=== PATIENT | male | born 1955 | race Caucasian/White ===

== ENCOUNTER → 2019-12-21 | Outpatient (CLI) | payer OTHER ==
[~2019-12-21] MED LIST: AMIO200T42 PO; APIX5TAB PO; ASPI-496 PO; CALC200T24 PO; ENAL10TA PO; LEVO150T5 PO; METO-95 PO; METO25TA35 PO; NITR100C56 PO; OMNIPAQUE 350 MG/ML, 100ML BOTTLE ONE; OPIU1SUP PR; OXYC5TAB3 PO; PRAV10TA2 PO; TRAM50TA2 PO
== END | disposition home or self-care (01) ==
LOC: CFH 09:09
PROVIDERS: ATTEND Surgery
DX: K57.30 Diverticulosis of large intestine without perforation or abscess without bleeding (principal); K56.609 Unspecified intestinal obstruction, unspecified as to partial versus complete obstruction; K40.90 Unilateral inguinal hernia, without obstruction or gangrene, not specified as recurrent
CPT/HCPCS: 74177; Q9967

== ENCOUNTER → 2020-04-08 | Outpatient (CLI) | payer OTHER ==
[~2020-04-08] MED LIST changes: +Enalapril PO; +METO25TA4 PO; +MULT-658 PO; -OMNIPAQUE 350 MG/ML, 100ML BOTTLE ONE
[2020-04-08 10:04] LABS: BASOPHILS # (AUTO) 0.03 x10^3/uL (0-0.1); BASOPHILS % (AUTO) 1 % (0-1); EOSINOPHILS % (AUTO) 4 % (1-7); LYMPHOCYTES # (AUTO) 1.65 x10^3/uL (1-3.4); LYMPHOCYTES % (AUTO) 29 % (22-44); MD NO; MEAN CORPUSCULAR HEMOGLOBIN 32.5 pg (27.5-34.5); MEAN CORPUSCULAR HGB CONC 33.9 g/dL (33.2-36.2); MEAN CORPUSCULAR VOLUME 96.1 fL (81-97); MEAN PLATELET VOLUME 9.7 fL (7.4-10.4); MONOCYTES # (AUTO) 0.54 x10^3/uL (0.2-0.8); MONOCYTES % (AUTO) 9 % (2-9); NEUTROPHILS # (AUTO) 3.34 x10^3/uL (1.8-6.8); NEUTROPHILS % (AUTO) 58 % (42-75); PLATELET COUNT 241 x10^3/uL (130-400); RED BLOOD COUNT 4.75 x10^6/uL (4.38-5.82); RED CELL DISTRIBUTION WIDTH 13.1 % (9.4-14.8)
[2020-04-08 10:15] LABS: ALBUMIN 3.8 g/dL (3.4-5.0); ANION GAP 6 mmol/L (5-15); CHLORIDE 110 mmol/L (98-107)
[2020-04-08 10:20] LABS: ALANINE AMINOTRANSFERASE 28 U/L (12-78); ALKALINE PHOSPHATASE 57 U/L (45-117); BILIRUBIN,TOTAL 0.8 mg/dL (0.2-1.0); CREATININE 1.04 mg/dL (0.7-1.3)
== END | disposition home or self-care (01) ==
LOC: STAR 08:37
PROVIDERS: ATTEND Thoracic Surgery (Cardiothoracic Vascular Surgery)
DX: Z01.818 Encounter for other preprocedural examination (principal); M47.814 Spondylosis without myelopathy or radiculopathy, thoracic region; R94.31 Abnormal electrocardiogram [ECG] [EKG]
CPT/HCPCS: 36415; 71046; 80053; 85025; 93005

== ENCOUNTER → 2020-12-13 | Outpatient (CLI) | payer OTHER ==
[~2020-12-13] MED LIST changes: -ENAL10TA PO; +ENAL10TA9 PO; +OMNIPAQUE 350 MG/ML, 100ML BOTTLE ONE; +OXYC5CAP2 PO; -OXYC5TAB3 PO; +OXYC5TAB98 PO
== END | disposition home or self-care (01) ==
LOC: CFH 11:56
PROVIDERS: ATTEND Thoracic Surgery (Cardiothoracic Vascular Surgery)
DX: K76.0 Fatty (change of) liver, not elsewhere classified (principal); K57.30 Diverticulosis of large intestine without perforation or abscess without bleeding; K43.2 Incisional hernia without obstruction or gangrene; K43.9 Ventral hernia without obstruction or gangrene
CPT/HCPCS: 74177; Q9967

== ENCOUNTER → 2021-02-02 | Outpatient (CLI) | payer MEDICARE, OTHER ==
[~2021-02-02] MED LIST changes: +ATOR20TA37 PO; -OMNIPAQUE 350 MG/ML, 100ML BOTTLE ONE; +RIVA20TA PO
[2021-02-02 11:56] LABS: ALANINE AMINOTRANSFERASE 32 U/L (12-78); ALBUMIN 3.8 g/dL (3.4-5.0); ANION GAP 5 mmol/L (5-15); CHLORIDE 110 mmol/L (98-107); CREATININE 1.07 mg/dL (0.7-1.3)
[2021-02-02 11:59] LABS: ALKALINE PHOSPHATASE 72 U/L (45-117); BILIRUBIN,TOTAL 0.7 mg/dL (0.2-1.0); TOTAL PROTEIN 6.9 g/dL (6.4-8.2)
== END | disposition home or self-care (01) ==
LOC: STAR 10:45
PROVIDERS: ATTEND Thoracic Surgery (Cardiothoracic Vascular Surgery)
DX: Z01.812 Encounter for preprocedural laboratory examination (principal); Z20.822 Contact with and (suspected) exposure to COVID-19; I48.91 Unspecified atrial fibrillation; R94.31 Abnormal electrocardiogram [ECG] [EKG]
CPT/HCPCS: 36415; 80053; 93005; U0003; U0005

== ENCOUNTER 2021-02-08 06:15 | Day surgery (SDC) | payer MEDICARE, OTHER ==
[~2021-02-08] VITALS: Ht 193 cm; Wt 124.0 kg
[2021-02-08 06:38] VITALS: BP 137/87
[2021-02-08] MEDS ORDERED: CHLORHEXIDINE 15 ML UDC ONE (06:41)
[2021-02-08] MEDS ORDERED: BUPIVACAINE/PF 0.5% ONE (06:54)
[2021-02-08] MEDS ORDERED: EPINEPHRINE 1 MG/ML, 1ML ONE (06:54)
[2021-02-08] MEDS ORDERED: CHLORHEXIDINE 15 ML UDC PO ONE (07:00)
[2021-02-08] MEDS ORDERED: LACTATED RINGERS 1,000 ML IV SCH ×2 (07:00→10:00)
[2021-02-08] MEDS ORDERED: MIDAZOLAM 1 MG/ML, 2ML ONE (07:02)
[2021-02-08] MEDS ORDERED: FENTANYL PF 250 MCG/5ML ONE (07:02)
[2021-02-08] MEDS ORDERED: PROPOFOL 50 ML ONE ×2 (07:03→08:07)
[2021-02-08] MEDS ORDERED: CEFAZOLIN 1,000 MG ONE ×2 (07:17)
[2021-02-08] MEDS ORDERED: ROCURONIUM 10MG/ML,5ML ONE (07:17)
[2021-02-08] MEDS ORDERED: DEXAMETHASONE 4 MG/ML, 5ML ONE (07:21)
[2021-02-08] MEDS ORDERED: PROPOFOL 10 MG/ML, 20ML ONE (07:21)
[2021-02-08] MEDS ORDERED: BUPIVACAINE/PF 0.25% ONE (07:51)
[2021-02-08] MEDS ORDERED: ONDANSETRON 2MG/ML, 2ML ONE (07:57)
[2021-02-08] MEDS ORDERED: METOPROLOL 1 MG/ML, 5ML ONE (07:59)
[2021-02-08] MEDS ORDERED: PROMETHAZINE 25 MG/ML, 1ML IVPush PRN (08:00)
[2021-02-08] MEDS ORDERED: LABETALOL 5MG/ML, 20ML IV PRN (08:00)
[2021-02-08] MEDS ORDERED: hydrALAzine 20 MG/ML, 1ML IV PRN (08:00)
[2021-02-08] MEDS ORDERED: ONDANSETRON 2MG/ML, 2ML IVPush PRN ×2 (08:00→09:30)
[2021-02-08] MEDS ORDERED: ACETAMINOPHEN 325 MG TABLET PO PRN (08:00)
[2021-02-08] MEDS ORDERED: MEPERIDINE/PF 25MG/0.5ML IVPush PRN (08:00)
[2021-02-08] MEDS ORDERED: METOPROLOL 1 MG/ML, 5ML IV PRN (08:00)
[2021-02-08] MEDS ORDERED: HYDROmorphone 1 MG/ML, 1ML INJ IVPush PRN (08:00)
[2021-02-08] MEDS ORDERED: OXYC5TAB98 PO (09:12)
[2021-02-08] MEDS ORDERED: FENTANYL PF 100 MCG/2ML ONE (09:14)
[2021-02-08] MEDS: FENTANYL PF 100 MCG/2ML IV PRN ×2 (09:16→09:30)
[2021-02-08] MEDS ORDERED: METHOCARBAMOL 1,000 MG in DEXTROSE 5% 100 ML IV ONE (09:30)
[2021-02-08] MEDS ORDERED: morphine SULFATE 10 MG/ML, 1ML IVPush PRN (09:30)
[2021-02-08] MEDS ORDERED: OXYcodone IR 5MG TABLET PO PRN (09:30)
[2021-02-08] MEDS ORDERED: KETOROLAC 30 MG/1 ML IVPush PRN (09:30)
[2021-02-08] MEDS ORDERED: OXYcodone 5 MG/5 ML ORAL.SOL UDC ONE (09:39)
[2021-02-08] MEDS ORDERED: ACETAMINOPHEN 650 MG/20.3 ML UDC ONE (09:39)
[2021-02-08] MEDS: OXYcodone 5 MG/5 ML ORAL.SOL UDC PO PRN ×2 (09:42→11:17)
== END 2021-02-08 14:07 | disposition home or self-care (01) ==
LOC: OUT 06:15
PROVIDERS: ATTEND Thoracic Surgery (Cardiothoracic Vascular Surgery)
DX: K43.2 Incisional hernia without obstruction or gangrene (principal); I10 Essential (primary) hypertension; I48.91 Unspecified atrial fibrillation; Z79.01 Long term (current) use of anticoagulants; Z79.899 Other long term (current) drug therapy
CPT/HCPCS: 49565; 49568; 64488; C1781; J0690; J1100; J1885; J2250; J2405; J2704; J2800; J3010; J7120; J0171